=== PATIENT | male | born 1965 | race African-American/Black ===

== ENCOUNTER 2016-04-01 07:52 | Emergency (ER) | payer OTHER ==
[~2016-04-01] VITALS: Ht 175.3 cm; Wt 103.0 kg
[~2016-04-01 07:52] MED LIST: BENTYL20 MG PO; FLEXERIL10 MG PO; NAPROSYN500 MG PO; OMEPRAZOLE20 M2 PO; PHENERGAN25 MG PR; REGLAN10 MG PO; TRAMADOL HCL50 MG PO; ULTRAM50 MG PO; ZOFRAN ODT4 MG PO
[2016-04-01 07:55] VITALS: BP 151/91
[2016-04-01] MEDS ORDERED: PERIDEX1 ML MM (09:09)
[2016-04-01] MEDS ORDERED: TRAMADOL HCL50 MG PO (09:09)
[2016-04-01] MEDS ORDERED: NAPROSYN500 MG PO (09:09)
[2016-04-01] MEDS ORDERED: PEN-VEE K,VEET500 MG PO (09:09)
== END 2016-04-01 09:19 | disposition home or self-care (01) ==
LOC: EME 07:52
DX: K04.7 Periapical abscess without sinus (principal); K03.81 Cracked tooth; K08.89 Other specified disorders of teeth and supporting structures; G89.29 Other chronic pain; F17.200 Nicotine dependence, unspecified, uncomplicated; Z71.6 Tobacco abuse counseling
CPT/HCPCS: 99281; 99284

== ENCOUNTER 2016-06-05 02:04 | Emergency (ER) | payer OTHER ==
[~2016-06-05] VITALS: Ht 175.3 cm; Wt 113.0 kg
[~2016-06-05 02:04] MED LIST changes: +PEN-VEE K,VEET500 MG PO; +PERIDEX1 ML MM
[2016-06-05] MEDS ORDERED: MOTRIN800 MG PO (02:25)
[2016-06-05 02:41] VITALS: BP 153/88
== END 2016-06-05 02:42 | disposition home or self-care (01) ==
LOC: EME 02:04
DX: S93.401A Sprain of unspecified ligament of right ankle, initial encounter (principal); X58.XXXA Exposure to other specified factors, initial encounter; F17.200 Nicotine dependence, unspecified, uncomplicated
CPT/HCPCS: 73610; 99281; 99284

== ENCOUNTER 2016-09-22 09:00 | Emergency (ER) | payer OTHER ==
[~2016-09-22] VITALS: Ht 175.3 cm; Wt 116.0 kg
[~2016-09-22 09:00] MED LIST changes: +MOTRIN800 MG PO
[2016-09-22] MEDS ORDERED: VISINE MAX REDN15 ML BOTH EYES (09:21)
[2016-09-22] MEDS ORDERED: MOTRIN800 MG PO (09:21)
[2016-09-22] MEDS ORDERED: CLARITIN,ALAVAR10 MG PO (09:21)
[2016-09-22 09:57] VITALS: BP 136/78
== END 2016-09-22 09:58 | disposition home or self-care (01) ==
LOC: EME 09:00
DX: H10.13 Acute atopic conjunctivitis, bilateral (principal); F17.200 Nicotine dependence, unspecified, uncomplicated
CPT/HCPCS: 99281; 99283

== ENCOUNTER 2016-10-01 14:57 | Emergency (ER) | payer OTHER ==
[~2016-10-01] VITALS: Ht 175.3 cm; Wt 114.7 kg
[~2016-10-01 14:57] MED LIST changes: +CLARITIN,ALAVAR10 MG PO; +VISINE MAX REDN15 ML BOTH EYES
[2016-10-01 15:58] VITALS: BP 142/85
[2016-10-01] MEDS ORDERED: MOTRIN800 MG PO (15:59)
== END 2016-10-01 15:55 | disposition home or self-care (01) ==
LOC: EME 14:57
PROC: 3E0234Z Introduction of Serum, Toxoid and Vaccine into Muscle, Percutaneous Approach (ICD-10-PCS; principal; 2016-10-01)
DX: S61.231A Puncture wound without foreign body of left index finger without damage to nail, initial encounter (principal); W45.8XXA Other foreign body or object entering through skin, initial encounter; Y93.E6 Activity, residential relocation; K02.9 Dental caries, unspecified; F17.200 Nicotine dependence, unspecified, uncomplicated; Z23 Encounter for immunization
CPT/HCPCS: 99281; 99283

== ENCOUNTER 2016-10-23 14:58 | Emergency (ER) | payer OTHER ==
[~2016-10-23] VITALS: Ht 172.7 cm; Wt 113.9 kg
[2016-10-23 15:02] VITALS: BP 137/66
[2016-10-23] MEDS ORDERED: MOTRIN800 MG PO (17:07)
[2016-10-23] MEDS ORDERED: KEFLEX500 MG PO (17:07)
== END 2016-10-23 17:23 | disposition home or self-care (01) ==
LOC: EME 14:58
PROC: 0H9FXZZ Drainage of Right Hand Skin, External Approach (ICD-10-PCS; principal; 2016-10-23)
DX: S60.031A Contusion of right middle finger without damage to nail, initial encounter (principal); W23.0XXA Caught, crushed, jammed, or pinched between moving objects, initial encounter; Z87.891 Personal history of nicotine dependence
CPT/HCPCS: 73140; 99281; 99284

== ENCOUNTER 2016-11-16 06:57 | Emergency (ER) | payer OTHER ==
[~2016-11-16] VITALS: Ht 172.7 cm; Wt 113.4 kg
[~2016-11-16 06:57] MED LIST changes: +KEFLEX500 MG PO
[2016-11-16] MEDS ORDERED: NAPROSYN500 MG PO (10:30)
[2016-11-16] MEDS ORDERED: FLEXERIL10 MG PO (10:30)
[2016-11-16 11:00] VITALS: BP 139/86
== END 2016-11-16 11:00 | disposition home or self-care (01) ==
LOC: EME 06:57
PROC: 0HC0XZZ Extirpation of Matter from Scalp Skin, External Approach (ICD-10-PCS; principal; 2016-11-16)
DX: S00.03XA Contusion of scalp, initial encounter (principal); S00.83XA Contusion of other part of head, initial encounter; M79.5 Residual foreign body in soft tissue; Y04.0XXA Assault by unarmed brawl or fight, initial encounter; F17.200 Nicotine dependence, unspecified, uncomplicated
CPT/HCPCS: 70450; 70486; 99281; 99283

== ENCOUNTER 2016-12-04 08:04 | Emergency (ER) | payer OTHER ==
[~2016-12-04] VITALS: Ht 172.7 cm; Wt 112.7 kg
[2016-12-04] MEDS ORDERED: ERYTHROMYC1 APPLICAT BOTH EYES ×2 (09:19→09:20)
[2016-12-04 09:47] VITALS: BP 169/97
== END 2016-12-04 09:47 | disposition home or self-care (01) ==
LOC: EME 08:04
DX: H00.011 Hordeolum externum right upper eyelid (principal); F17.200 Nicotine dependence, unspecified, uncomplicated
CPT/HCPCS: 99281; 99284

== ENCOUNTER 2017-01-22 08:11 | Emergency (ER) | payer OTHER ==
[~2017-01-22] VITALS: Ht 172.7 cm; Wt 114.0 kg
[~2017-01-22 08:11] MED LIST changes: +ERYTHROMYC1 APPLICAT BOTH EYES
[2017-01-22] MEDS ORDERED: ZITHROMAX Z-PA250 MG PO (10:55)
[2017-01-22] MEDS ORDERED: VENTOLIN HFA18 GM IH (10:55)
[2017-01-22 11:13] LABS: POINT-OF-CARE METER ID UU13113702
[2017-01-22 11:17] VITALS: BP 110/90
== END 2017-01-22 11:22 | disposition home or self-care (01) ==
LOC: EME 08:11
PROVIDERS: Emergency Medicine
DX: J20.9 Acute bronchitis, unspecified (principal); F17.200 Nicotine dependence, unspecified, uncomplicated
CPT/HCPCS: 82948; 99281; 99284